=== PATIENT | female | born 1955 | race Caucasian/White ===

== ENCOUNTER → 2019-07-11 | Outpatient (CLI) | payer MEDICARE, OTHER ==
[~2019-07-11] MED LIST: CALC.25 PO; Cyclobenzaprine5 MG PO; DOXY100 PO; DULO60 PO; IBUP800 PO; Norco 5-325 Ta1 EACH PO; OXYACE5T PO; UNKNOWN BP MED
[2019-07-11 13:17] LABS: BASOPHILS ABSOLUTE AUTO 0.12 K/mm3 (0.00-0.23); BASOPHILS PERCENT AUTO 1 % (0-2); EOSINOPHILS ABSOLUTE AUTO 0.21 K/mm3 (0.00-0.68); EOSINOPHILS PERCENT AUTO 2 % (0-6); Hematocrit 45.1 % (33.0-51.0); IMMATURE GRAN ABSOLUTE AUTO 0.04 K/mm3 (0.00-0.10); IMMATURE GRAN PERCENT AUTO 0 % (0-1); LYMPHOCYTES ABSOLUTE AUTO 2.04 K/mm3 (0.84-5.20); LYMPHOCYTES PERCENT AUTO 19 % (21-46); MONOCYTES ABSOLUTE AUTO 0.64 K/mm3 (0.16-1.47); MONOCYTES PERCENT AUTO 6 % (4-13); Mean Corpuscular HGB 31.9 pg (26.0-34.0); Mean Corpuscular HGB Conc 33.3 g/dL (31.5-36.5); Mean Corpuscular Volume 96 fL (80-100); Mean Platelet Volume 9.9 fL (9.1-12.4); NEUTROPHILS ABSOLUTE AUTO 7.51 K/mm3 (1.96-9.15); NEUTROPHILS PERCENT AUTO 71 % (41-73); Platelet Count 357 K/mm3 (150-400); RDW Coefficient Variation 12.3 % (11.7-14.2); RDW Standard Deviation 44.1 fL (35.1-46.3); White Blood Cell Count 10.56 K/mm3 (4.00-11.30)
[2019-07-11 14:02] LABS: Alanine Aminotransfer (ALT/SGP 50 U/L (12-78); Albumin, Blood 3.8 g/dL (3.4-5.0); Alk Phos 99 U/L (50-136); Anion Gap 6 mmol/L (6-16); Aspartate Aminotrans (AST/SGOT 35 U/L (12-37); Bilirubin, Total 0.4 mg/dL (0.1-1.0); Blood Urea Nitrogen 17 mg/dL (8-24); Bun/Creatinine Ratio 19.3 (12.0-20.0); CHOL/HDL RATIO 3.8; CO2, Blood 23 mmol/L (21-32); Chloride, Blood 109 mmol/L (98-108); Cholesterol 245 mg/dL (50-200); Creatinine, Blood 0.88 mg/dL (0.40-1.00); Glomerular Filtration Rate >60 (60-); Glucose, Blood 103 mg/dL (70-99); HDL Cholesterol 65 mg/dL (>39); LDL/HDL RATIO 2.2; Low Density Lipoprotein Chol 146 mg/dL (0-110); Potassium, Blood 3.8 mmol/L (3.5-5.5); Sodium, Blood 138 mmol/L (136-145); Total Protein, Blood 7.8 g/dL (6.4-8.2); Triglycerides 172 mg/dL (30-160); Very Low Density Lipoprot Chol 34 mg/dL (6-32)
== END | disposition home or self-care (01) ==
LOC: LAB SHORT 12:23 → LAB 12:23 → LAB FUT 08-26 10:45 → EDSTATUS 08-26 10:45
PROVIDERS: Physician Assistant
DX: E78.5 Hyperlipidemia, unspecified (principal); I10 Essential (primary) hypertension
CPT/HCPCS: 80053; 80061; 85025

== ENCOUNTER 2019-12-17 11:39 | Emergency (ER) | payer MEDICARE, OTHER ==
[~2019-12-17] VITALS: Ht 157.5 cm; Wt 79.4 kg
== END 2019-12-17 12:30 | disposition home or self-care (01) ==
LOC: ER 11:39
DX: S01.81XA Laceration without foreign body of other part of head, initial encounter (principal); S80.211A Abrasion, right knee, initial encounter; F17.210 Nicotine dependence, cigarettes, uncomplicated; Z88.5 Allergy status to narcotic agent; Z79.899 Other long term (current) drug therapy; W01.0XXA Fall on same level from slipping, tripping and stumbling without subsequent striking against object, initial encounter
CPT/HCPCS: 12011; 99283-25

== ENCOUNTER 2023-01-15 07:25 | Emergency (ER) | payer MEDICARE, OTHER ==
[~2023-01-15] VITALS: Ht 170.2 cm; Wt 86.0 kg
[2023-01-15 08:13] VITALS: BP 140/75
== END 2023-01-15 09:09 | disposition home or self-care (01) ==
LOC: ER 07:25
DX: S62.614A Displaced fracture of proximal phalanx of right ring finger, initial encounter for closed fracture (principal); W18.30XA Fall on same level, unspecified, initial encounter; Z88.5 Allergy status to narcotic agent; Z79.899 Other long term (current) drug therapy; I10 Essential (primary) hypertension; E78.5 Hyperlipidemia, unspecified; F17.210 Nicotine dependence, cigarettes, uncomplicated
CPT/HCPCS: 29130; 73130; 73140; 99283-25

== ENCOUNTER → 2024-02-02 | Outpatient (CLI) | payer MEDICARE, OTHER ==
[2024-02-04 15:23] LABS: CALPROTECTIN,FECAL 10 ug/g (<=49)
== END ==
LOC: LAB 08:00 → LAB SHORT 08:00
PROVIDERS: Student in an Organized Health Care Education/Training Program
DX: R10.84 Generalized abdominal pain (principal)
CPT/HCPCS: 83993